=== PATIENT | female | born 1965 | race Caucasian/White ===

== ENCOUNTER 2023-10-31 22:01 | Emergency (ER) | payer MEDICARE, OTHER, SELFPAY ==
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
[2023-10-31 23:05] LABS: % Basophils 0.8 % (0-2); % Eosinophils 3.5 % (0-6); % Immature Granulocytes 0.3 % (0-0.5); % Lymphocytes 33.4 % (20.5-51.1); % Monocytes 7.4 % (1.7-9.3); % Neutrophils 54.6 % (42.2-75.2); Absolute Basophils 0.1 10^3/uL (0-0.2); Absolute Eosinophils 0.3 10^3/uL (0-0.7); Absolute Lymphocytes 2.5 10^3/uL (1.2-3.4); Absolute Monocytes 0.6 10^3/uL (0.1-0.6); Absolute Neutrophils 4.2 10^3/uL (1.4-6.5); Hematocrit 36.3 % (37.0-47.0); Hemoglobin 13.2 g/dL (12.0-16.0); Mean Corp Hgb Conc. 36.4 g/dL (33.0-37.0); Mean Corpuscular Hgb 31.7 pg (27.0-31.0); Mean Corpuscular Volume 87.1 fL (81.0-99.0); Mean Platelet Volume 8.3 fL (7.4-10.4); Nucleated Red Blood Cells % 0 %; Platelet Count 237 10^3/uL (130-400); Red Blood Cell Count 4.17 10^6/uL (4.20-5.40); Red Cell Dist. Width 11.9 % (11.5-14.5); White Blood Cell Count 7.6 10^3/uL (4.8-10.8)
[2023-10-31 23:45] LABS: Blood Urea Nitrogen 8 mg/dl (7-17); Calcium 9.3 mg/dl (8.4-10.2); Carbon Dioxide 28 mmol/L (22-30); Chloride 94 mmol/L (98-107); Glucose 138 mg/dl (70-99); Potassium 3.5 mmol/L (3.5-5.1); Sodium 125 mmol/L (135-145); eGFR > 60.00
[2023-11-01 00:16] LABS: TSH Reflex To Free T4 1.83 uIU/ml (0.47-4.68)
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
[2023-11-01 00:28] LABS: Osmolality Serum 266 mOsm/kg (275-300)
[2023-11-01 01:01] LABS: Osmolality Urine 78 mOsm/kg (300-900)
[2023-11-01] MEDS: NSS 1000 IV (01:07)
[2023-11-01 01:23] VITALS: BP 117/76
[2023-11-01 02:16] LABS: Urine Sodium 11 mmol/L (30-90)
--- NOTE | 2023-11-01 05:20 | W.PN.UPDATE ---
Update Note
Progress Note Update
Repeat Na is 130 from 125
Ur Na 11 - not elevated
Ur Osm 78 - urine is not in appropriately concentrated
Sr Osm 266 ( decreased Sr osm)
nl TSH 1.83
- No IP medical admission indicated
- Psych eval in AM
[2023-11-01 05:22] LABS: Blood Urea Nitrogen 7 mg/dl (7-17); Calcium 9.4 mg/dl (8.4-10.2); Carbon Dioxide 25 mmol/L (22-30); Chloride 100 mmol/L (98-107); Glucose 89 mg/dl (70-99); Potassium 4.4 mmol/L (3.5-5.1); Sodium 131 mmol/L (135-145); eGFR > 60.00
[2023-11-01 06:01] LABS: Cortisol, Random 12.7 ug/dl
[2023-11-01 07:02] VITALS: BP 139/89
[2023-11-01 07:05] VITALS: BP 139/89
--- NOTE | 2023-11-01 07:10 | EDRN ---
Call to crisis to to see if they have ANY paperwork, med list, med hx or demographics so I have numbers I can call to get this info
--- NOTE | 2023-11-01 07:27 | EDRN ---
Crisis states : she's not our patient anymore' and handed me her face sheet that has NO Medical info listed. They then told me ' there's a chance that the [facility] won't take her back also'. I called the main number and left a
message on the nursing phone ext for her MAR, med history and HPI.
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
[2023-11-01 08:09] VITALS: BP 128/86
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
--- NOTE | 2023-11-01 08:36 | EDRN ---
I was able to reach a nurse at her residential facility and asked them to fax me her MAR and allergy history. FAX number provided
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
--- NOTE | 2023-11-01 08:56 | EDRN ---
VO Dr Joroad- stop IVF
--- NOTE | 2023-11-01 09:39 | ED TECH ---
This PCT walked into patients bathroom and found pt frantically trying to wash her genital area with hand soap and water saying, 'I hate that I stink.' This PCT offered her a towel and to dry herself, hygiene products and a clean gown but pt
refused. Patient then began soaking her hair with sink water, pulling aggressively at her pony tail. Patient was redirected, given towel, and asked to sit back in bed. As this PCT left, pt screaming for ativan and 'other drugs I am addicted to from
my brain injury.' RN notified. Awaiting psych consult.
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
[2023-11-01 10:38] LABS: Urine Albumin Negative (Neg - Trace); Urine Bilirubin Negative (Negative); Urine Character Clear (Clear); Urine Color Straw; Urine Glucose Negative (Negative); Urine Ketone Negative (Negative); Urine Leukocyte Negative (Negative); Urine Nitrite Negative (Negative); Urine Occult Blood Negative (Negative); Urine Specific Gravity 1.005 (<1.030); Urine Urobilinogen Negative (Neg - 1+)
[2023-11-01] MEDS: ATIVAN 1 MG PO ×2 (10:48→20:57)
[2023-11-01] MEDS: GEODON 40 MG PO ×2 (11:35→20:57)
[2023-11-01 15:12] LABS: Carbon Dioxide 32 mmol/L (22-30); Chloride 92 mmol/L (98-107); Potassium 3.6 mmol/L (3.5-5.1); Sodium 131 mmol/L (135-145)
[2023-11-01] MEDS: ATIVAN 0.5 MG PO (18:10)
[2023-11-01 21:36] VITALS: BP 120/80
== END 2023-11-01 21:39 ==
LOC: EMR 22:01
PROVIDERS: Internal Medicine; CONSULT PHYSICIAN Hospitalist; CONSULT PHYSICIAN Psychiatry & Neurology Psychiatry; CONSULT PHYSICIAN Specialist; EMERGENCY PHYSICIAN Emergency Medicine
DX: E87.1 Hypo-osmolality and hyponatremia (principal); R45.851 Suicidal ideations; Z87.820 Personal history of traumatic brain injury; R03.0 Elevated blood-pressure reading, without diagnosis of hypertension; E11.9 Type 2 diabetes mellitus without complications; F31.9 Bipolar disorder, unspecified; F22 Delusional disorders
CPT/HCPCS: 99285; 96360; 96361; 80048; 80051; 81003; 82533; 83930; 83935; 84300; 84443; 85025; 93005

== ENCOUNTER → 2024-08-25 09:28 | Outpatient (REF) | payer MEDICARE, OTHER, SELFPAY | LOC: HWRAD 09:28 | PROVIDERS: ATTENDING PHYSICIAN Internal Medicine Geriatric Medicine | DX: J18.9 Pneumonia, unspecified organism (principal) | CPT/HCPCS: 71046 ==

== ENCOUNTER 2025-04-07 15:26 | Emergency (ER) | payer MEDICARE, OTHER, SELFPAY ==
[2025-04-07 15:28] VITALS: BP 159/93; BMI 25.5
[2025-04-07 15:29] VITALS: BP 159/93
[2025-04-07 15:57] LABS: Hematocrit 36.2 % (37.0-47.0); Hemoglobin 12.8 g/dL (12.0-16.0); Mean Corp Hgb Conc. 35.4 g/dL (33.0-37.0); Mean Corpuscular Volume 89.6 fL (81.0-99.0); Nucleated Red Blood Cells % 0 %; Platelet Count 173 10^3/uL (130-400); Red Cell Dist. Width 13.3 % (11.5-14.5)
[2025-04-07 16:00] VITALS: BP 132/88
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
[2025-04-07 16:16] LABS: Troponin I < 0.012 ng/ml
[2025-04-07 16:20] LABS: ALT (SGPT) 10 U/L (0-35); AST (SGOT) 17 U/L (14-36); Albumin 4.0 g/dl (3.5-5.0); Alkaline Phosphatase 50 U/L (38-126); Blood Urea Nitrogen 7 mg/dl (7-17); Calcium 9.2 mg/dl (8.4-10.2); Carbon Dioxide 29 mmol/L (22-30); Chloride 95 mmol/L (98-107); Estimated Creatinine Clearance 87 ml/min; Glucose 129 mg/dl (70-99); Potassium 3.7 mmol/L (3.5-5.1); Sodium 130 mmol/L (135-145); Total Protein 6.5 g/dl (6.3-8.2); eGFR > 60.00
[2025-04-07 16:32] LABS: D-Dimer < 0.27 ug/mlFEU (0.00-0.50)
[2025-04-07 17:00] VITALS: BP 111/95
[2025-04-07] MEDS: ATIVAN 0.5 MG PO (17:00)
[2025-04-07 19:17] LABS: Troponin I < 0.012 ng/ml
== END 2025-04-07 23:26 | disposition home or self-care (01) ==
LOC: EMR 15:26
PROVIDERS: Physician Assistant; EMERGENCY PHYSICIAN Emergency Medicine; FAMILY PHYSICIAN Internal Medicine Geriatric Medicine
DX: R07.89 Other chest pain (principal); I10 Essential (primary) hypertension; E11.9 Type 2 diabetes mellitus without complications; E78.00 Pure hypercholesterolemia, unspecified; F25.9 Schizoaffective disorder, unspecified; F31.9 Bipolar disorder, unspecified; K21.9 Gastro-esophageal reflux disease without esophagitis; Z87.820 Personal history of traumatic brain injury; Z88.6 Allergy status to analgesic agent; Z88.1 Allergy status to other antibiotic agents; Z88.0 Allergy status to penicillin; Z88.8 Allergy status to other drugs, medicaments and biological substances; Z91.048 Other nonmedicinal substance allergy status
CPT/HCPCS: 99285; 71046; 80053; 84484; 85025; 85379; 93005